=== PATIENT | male | born 2000 | race Caucasian/White ===

== ENCOUNTER 2023-08-01 12:16 | Day surgery (SDC) | payer BC ==
--- NOTE | 2023-07-31 09:07 | P.HPOR ---
History of Present Illness H&P Date: 07/31/23 Subjective: This is a 23 year old male that presents today for initial evaluation regarding a right hand injury that occurred on 07/25/2023 when he punched a window of a car and the car window did not break. He had immediate pain, bruising and swelling. 2 days later he went to his primary care physician and x-rays were taken and he was referred to orthopedics for further evaluation. He denies any prior injury to this extremity in the past. He is right-hand dominant. Physical Examination: RUE: AIN/PIN/Radial/Ulnar/Median motor intact. Radial/Ulnar/Median SILT. 2+/4 Radial/Ulnar pulses palpated. 5/5 APB, 5/5 FDI. Bruising/swelling present over dorsum of hand. TTP over 5th metacarpal shaft. No rotational deformity present. Prominent dorsal bump over 5th metacarpal shaft. Imaging: X-Rays of the right hand 3V taken in office today demonstrate a 5th metacarpal shaft fracture with 41 degrees of volar angulation Impression: 1.) Right 5th metacarpal shaft fracture Plan: Diagnosis and treatment options were discussed with the patient and mother. Both operative and non operative treatment options were discussed. We discussed his angulation is right on the cut off for surgical vs non surgical treatment. Due to his age, activity demand and this being his dominant hand he wishes to pursue right 5th metacarpal shaft fracture ORIF. Risks and benefits of surgery including bleeding, infection, damage to surrounding tissue, need for further surgery, residual numbness were discussed and the patient wished to go forward with surgery. The patient was agreeable with this plan. -Torey Maria DO Orthopedic Hand/Upper Extremity Surgeon Physical Examination Osteopathic Statement: *. No significant issues noted on an osteopathic structural exam other than those noted in the History and Physical/Consult.
[~2023-08-01 12:16] MED LIST: LACTATED RINGERS 1,000 ML IV SCH; ONDANSETRON 4 MG/2 ML VIAL IVP ONE; fentaNYL (PF) 50 MCG/ML 2 ML AMP IV PRN
[2023-08-01] MEDS ORDERED: DEXAMETHASONE SOD PHOSPHATE 4 MG/ML 1 ML VIAL IVP ONE (13:18)
[2023-08-01] MEDS ORDERED: MIDAZOLAM 2 MG/2 ML VIAL IVP ONE (13:18)
[2023-08-01] MEDS ORDERED: LIDOCAINE 1% INJ 10MG/ML (20 ML MDV) ONE (13:39)
[2023-08-01] MEDS ORDERED: DEXAMETHASONE SOD PHOSPHATE 4 MG/ML 1 ML VIAL ONE (13:39)
[2023-08-01] MEDS ORDERED: PROPOFOL 10 MG/ML 20 ML VIAL IV ONE (13:39)
[2023-08-01] MEDS ORDERED: MIDAZOLAM 2 MG/2 ML VIAL ONE (13:39)
[2023-08-01] MEDS ORDERED: fentaNYL (PF) 50 MCG/ML 2 ML AMP ONE (13:39)
[2023-08-01] MEDS ORDERED: ROPIVACAINE 5 MG/ML 30 ML VIAL ONE (13:39)
[2023-08-01 14:36] VITALS: TEMP 96.8
[2023-08-01 15:23] VITALS: RESP 16
--- NOTE | 2023-08-01 15:27 | P.OP ---
Date of Procedure: 08/01/23 Preoperative Diagnosis: Right 5th metacarpal shaft fracture Postoperative Diagnosis: Right 5th metacarpal shaft fracture Procedure(s) Performed: Right 5th metacarpal shaft fracture open reduction internal fixation Implants: [place] Fixos 3.0 mm headless compression screw, 40mm Anesthesia: ALANIS, regional Surgeon: Torey Maria Reeling Machine Operator #1: William Tobin Estimated Blood Loss (ml): 0 Pathology: none sent Condition: stable Disposition: PACU Description of Procedure: This is a 23 year old male who sustained a significantly angulated right 5th metacarpal shaft fracture and presents today for surgical intervention. Risks and benefits of surgery were discussed with the patient including bleeding, damage to surrounding tissue, infection, need for further surgery as well as risks of anesthesia including pulmonary embolism and even and the patient wished to proceed with surgical intervention. The patient was seen in the pre- operative area by myself. Consent and H&P were completed and updated. The correct extremity was marked in the pre-operative area by myself and all other questions were answered. Operative Narrative: The patient was brought to the operating room by the department of anesthesia. They remained on the portable stretcher and a rolling hand table was brought to the side of the operative extremity. Pre-operative time out was performed indicating the correct patient, procedure and laterality. All in the room agreed. Pre-operative antibiotics were given prior to skin incision. The patient was then drifted off to sleep by the department of anesthesia. A nonsterile tourniquet was then applied to the operative extremity and the right upper extremity was then prepped and draped in normal sterile fashion. The operative extremity was the exsanguinated with an esmarch bandage and the tourniquet was inflated to 250mmHg. Reduction Maneuver was performed and acceptable reduction was achieved and confirmed under fluoroscopy. Longitudinal incision was made over the 5th MCP joint. Blunt dissection was taken down through subcutaneous tissues and the interval between the EDM and EDC to the small finger was incised with a scalpel. Longitudinal incision in the capsule was made and retractors were placed to protect the extensor tendons. A K-wire was then inserted on the dorsal aspect of the metacarpal head and advanced in retrograde fashion and advanced through the cortex of the 5th CMC joint. Intramedullary placement was confirmed on imaging. A drill was then used to perforated the near cortex and screw measurement was made by placing the screw over the bone on imaging. A prakash 3.0mm x 40mm headless compression screw was then inserted over the guidewire and good compression and bite was appreciated as it was advanced. Rotation of the digit was checked and was found to be inline with the normal cascade of all digits. The wound was then irrigated. Skin closure was performed with 4-0 chromic sutures. Soft dressing was applied to the hand the tourniquet was let down and the hand had immediate perfusion. The patient was then woken by the department of anesthesia and transferred to PACU in stable condition. William GALLEGOS was present to assist in fracture reduction and hardware placement. Torey Maria D.O. Orthopedic Hand/Upper Extremity Surgeon
[2023-08-01 15:47] VITALS: BP 113/77; PULSE 78
--- NOTE | 2023-08-04 11:33 | P.ANPRN ---
Procedure Note - Anesthesia - Nerve Block Performed Right Supraclavicular Single Time Out Performed: Yes Date of Procedure: 08/01/23 Procedure Start Time: Procedure Stop Time: Location of Patient: PreOp Indication: Acute Post-Operative Pain, Requested by Surgeon Sedation Type: Sedate with meaningful contact maintained Preparation: Sterile Prep Position: Supine Needle Types: Pajunk Needle Gauge: 21 Ultrasound used to visualize needle placement: Yes Ultrasound used to observe medication spread: Yes Blood Aspirated: No Pain Paresthesia on Injection Noted: No Resistance on Injection: Normal Image Stored and Saved: Yes Events: Uneventful and Well Tolerated (Ropivacaine 0.5% 20 mL plus dexamethasone 4 with a)
== END 2023-08-01 15:41 | disposition home or self-care (01) ==
LOC: OR 12:16
PROVIDERS: ATTEND Orthopaedic Surgery Hand Surgery
DX: S62.326A Displaced fracture of shaft of fifth metacarpal bone, right hand, initial encounter for closed fracture (principal); F32.A Depression, unspecified; F41.9 Anxiety disorder, unspecified; Z98.890 Other specified postprocedural states; F12.90 Cannabis use, unspecified, uncomplicated; X58.XXXA Exposure to other specified factors, initial encounter; W25.XXXA Contact with sharp glass, initial encounter
CPT/HCPCS: 26615; J2250; J1100; J0690; J2405; 64415